=== PATIENT | male | born 2000 | race Hispanic/Latino ===

== ENCOUNTER 2025-01-06 12:25 | Emergency (ER) | payer OTHER ==
[~2025-01-06] VITALS: Ht 177.8 cm; Wt 104.9 kg
[2025-01-06 17:01] VITALS: BP 131/59; TEMP 97.7; O2SAT 100
== END 2025-01-06 17:03 | disposition home or self-care (01) ==
LOC: M ED 12:25
DX: J02.9 Acute pharyngitis, unspecified (principal); F17.290 Nicotine dependence, other tobacco product, uncomplicated; F10.10 Alcohol abuse, uncomplicated